=== PATIENT | female | born 1940 | race Caucasian/White ===

== ENCOUNTER 2016-11-12 23:48 | Emergency (ER) | payer MEDICARE ==
[2016-11-13 00:03] LABS: BASOPHILS 0.3 % (0.0-2.0); EOSINOPHILS 1.3 % (0.0-6.0); EOSINOPHILS# 0.2 X 10^3uL (0.0-0.4); HEMATOCRIT 30.3 % (36.0-48.0); HEMOGLOBIN 10.1 g/dL (12.0-16.0); LYMPHOCYTES# 5.1 X 10^3uL (0.8-3.8); MEAN CELL VOLUME 87.9 fL (84.0-102.0); MEAN CORPUS. HGB CONCENTRATION 33.4 g/dL (32.0-36.0); MEAN CORPUSCULAR HEMOGLOBIN 29.4 pg (29.0-35.0); MEAN PLATELET VOLUME 9.3 fL (7.4-10.4); MONOCYTES 3.8 % (2.0-10.0); MONOCYTES# 0.6 X 10^3uL (0.2-1.0); NEUTROPHILS 61.6 % (54.0-75.0); NEUTROPHILS# 9.7 X 10^3uL (2.6-6.7); RED BLOOD COUNT 3.44 X 10^6uL (4.20-6.10); RED CELL DISTRIBUTION WIDTH 12.8 % (11.5-14.5); WHITE BLOOD COUNT 15.6 X 10^3uL (3.9-10.7)
[2016-11-13 00:14] LABS: CALCIUM 9.2 mg/dL (8.4-10.2); POTASSIUM 4.1 mmol/L (3.5-5.1)
[2016-11-13] MEDS ORDERED: ONDANSETRON HCL 4 MG/2 ML VIAL ONE (00:30)
--- NOTE | 2016-11-13 00:37 | ER NURSING DOCUMENTATION ---
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 Pt found on floor, respiratory distress, pt lightheaded with positional changes. Pressures were initially 80/palp. Tachy in the 150-160's. Pt pants covered in blood. Transition of care: Home. Care prior to arrival: IV initiated. Saline lock initiated. Oxygen administered. IV Fluids given by EMS NS 500 ml Labs. 23:53 Method Of Arrival: EMS: 410 rh Triage Assessment: 23:58 General: Appears uncomfortable, Behavior is cooperative. Pain: Denies pain. EENT: Oral rh mucosa is dry. Neuro: Level of Consciousness is awake, alert, obeys commands, Oriented to person, place, time, event. Cardiovascular: Capillary refill is > 3 seconds. Respiratory: Airway is patent Respiratory effort is even, labored, Respiratory pattern is hyperventilation. GI: Abdomen is obese, Rectal exam: Bleeding noted, Stools are reported to be BRIGHT RED BLOODY STOOLS TONIGHT. Bowel sounds present X 4 quads. : No deficits noted. Derm: Skin is intact, is healthy with good turgor, Skin is pale. Musculoskeletal: Circulation, motion, and sensation intact Range of motion intact in all extremities. Historical: - Allergies: No known drug Allergies; - Home Meds: 1. hydrochlorothiazide 12.5 mg oral cap 1 cap once daily 2. montelukast 10 mg oral tab 1 tab once daily - PMHx: Hypertension; CHRONIC BACK PAIN; CERVICLE CANCER; - PSHx: Cancer Removal; - Tetanus: < 10 years. - Ebola Screening: : Patient negative for fever greater than or equal to 101.5 degrees Fahrenheit, and additional compatible Ebola Virus Disease symptoms. - Immunization history: Flu Vaccine < 1 year. - Social history: Smoking status: Patient states was never smoker of tobacco. Screenin/18 00:00 Infectious Disease Risk None. Abuse screen: Denies threats or abuse. Denies injuries rh from another. Nutritional screening: No deficits noted. Assessment: 00:00 See Triage Assessment done by same RN. rh 00:08 Reassessment: Helicopter arrival 00:23. rh 00:13 Reassessment: First Unit of uncrossed matched blood is in. . rh 00:21 GI: Reports nausea. rh Vital Signs: 11/12 23:50 BP 127 / 83; Pulse 157; Resp 26; Temp 98.7; Pulse Ox 97% on 6 lpm NC; Weight 68.04 kg; rh Height 5 ft. 4 in. (162.56 cm); Pain 0/10; 11/13 00:09 BP 109 / 56; Pulse 147; Resp 26; Pulse Ox 98% on 5 lpm NC; rh 00:20 BP 109 / 75; Pulse 143; Resp 22; Pulse Ox 96% on 3 lpm NC; Pain 0/10; rh 11/12 23:50 Body Mass Index 25.75 (68.04 kg, 162.56 cm) rh ED Course: 11/12 23:45 Oxygen Oxygen administration via nasal cannula @ 6L/min. rh 23:49 Patient arrived in ED. ma1 23:49 Bernie Fagan MD is Private Physician. ma1 23:50 Naun Sotelo MD is Attending Physician. 23:50 Yolanda Appiah is Primary Nurse. rh 23:50 Triage completed. rh 23:50 Notified ED Physician of patient's arrival and chief complaint. Dr. Sotelo notified. rh 23:50 monitoring specialist on. Pulse ox on. NIBP on. rh 23:55 BLOOD ADMIN CONSENT SIGNED. 11/13 00:01 Maintain field IV. Site clean & dry. Gauge & site: 18G BILATERAL AC. rh 00:01 Valuables Remains with patient Patient has correct armband on for positive rh identification. Placed in gown. Bed in low position. Call light in reach. Side rails up X 1. 00:02 EKG done. (by ED staff). Reviewed by Naun Sotelo MD. rh 00:05 EKG attached rh 00:17 Oxygen Oxygen administration via nasal cannula @ 3L/min. rh Administered Medications: 11/12 23:00 Drug: NS 0.9% 1000 ml; Route: IV; Rate: bolus; Site: left antecubital; rh 11/13 00:25 Follow up: IV Status: Completed infusion; IV Intake: 1000ml rh 11/12 23:50 Drug: NS 0.9% 500 ml; Route: IV; Rate: bolus; Site: left antecubital; rh 11/13 00:25 Follow up: IV Status: Completed infusion rh 00:21 Drug: Zofran 8 mg; {Note: ADMIN BY HIWOT URBAN.} Route: IVP; Infused Over: 2 mins; Site: right antecubital; 00:24 Follow up: Response: No adverse reaction; Nausea is decreased rh Medication: 11/12 23:00 Blood products: See transfusion record. rh Intake: 11/13 00:16 PO: 0ml; Total: 0ml. rh 00:25 IV: 1000ml; Total: 1000ml. rh Output: 00:16 Urine: 0ml; Total: 0ml. rh Outcome: 00:33 ER care complete, transfer ordered by . guilherme 00:35 [facility] Time: November 13, 2016 at 00:25 Patient's face sheet was faxed to accepting facility. Face Sheet included patient's name, address, age, gender, contact information and insurance information. Patient will be transported by: [employer] [facility]. Report called to: Valeri Cheema RN AT [facility] Nurse and Physician Charting and Notes were sent to Accepting Facility. All tests and/or procedures with results, if applicable, were sent to accepting facility. 00:35 Condition: stable 00:35 Discharge instructions given to Instructed on need for transfer 00:37 Patient left the ED. rh Signatures: Naun Sotelo MD MD jm Hofsess, Rachel Deb Calle
--- NOTE | 2016-11-13 00:37 | ER PHYSICIAN DOCUMENTATION ---
Physician Documentation [facility] Name:Martha Alvarez Age:76 yrs Sex:Female :1940 Arrival Date:11/12/2016 Time:23:48 BedTrauma A Private MD:Bernie Fagan ED, John Disposition: 11/13/16 00:33 Transfer ordered to [facility]. Diagnosis are GI Bleeding, Hemorrhagic Shock. - Reason for transfer: Higher level of care. - Accepting physician is Dr. Rushing. - Condition is Serious. - Problem is new. - Symptoms are unchanged. COBRA Form completed? Yes Transfer - Mode of Transportation Helicopter HPI: 11/12 23:59 This 76 yrs old Female presents to ER via EMS with complaints of GI Bleeding. jm 23:59 The patient presents to the emergency department with rectal bleeding, a large amount, jm "filled toilet", bright red blood with bowel movement. Onset: The symptom(s)/episode began/occurred today, and became worse today. Abdominal pain: none is appreciated. Modifying factors: the symptoms are aggravated by nothing. Associated signs and symptoms: Pertinent positives: dizziness at rest, shortness of breath. Severity of symptoms: in the emergency department the symptoms are unchanged. The patient has not experienced similar symptoms in the past. The patient has not recently seen a physician. Pt not on blood thinners. 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 Pt nearly passed out after and was on the bathroom floor. feels it was at least 2 pints of blood. . Historical: - Allergies: No known drug Allergies; - Home Meds: 1. hydrochlorothiazide 12.5 mg oral cap 1 cap once daily 2. montelukast 10 mg oral tab 1 tab once daily - PMHx: Hypertension; CHRONIC BACK PAIN; CERVICLE CANCER; - PSHx: Cancer Removal; - Tetanus: < 10 years. - Ebola Screening: : Patient negative for fever greater than or equal to 101.5 degrees Fahrenheit, and additional compatible Ebola Virus Disease symptoms. - Immunization history: Flu Vaccine < 1 year. - Social history: Smoking status: Patient states was never smoker of tobacco. ROS: 11/13 00:01 Constitutional: Positive for fatigue. jm Abdomen/GI: Positive for rectal bleeding, Negative for abdominal pain, nausea, vomiting, diarrhea, constipation, abdominal cramps. Skin: Positive for pallor. Neuro: Positive for dizziness, weakness. All other systems are negative. Exam: 00:02 Constitutional: The patient appears alert, awake, pale. 00:02 Eyes: Periorbital structures: appear normal, Conjunctiva: pale, bilaterally. 00:02 ENT: Nose: is normal, Mouth: Tongue: pale. 00:02 Cardiovascular: Rate: tachycardic, actual rate is 150 bpm, Rhythm: 00:02 Respiratory: Respirations: tachypnea, that is mild, Breath sounds: are normal. 00:02 Abdomen/GI: Palpation: abdomen is soft and non-tender, Rectal exam: Stool: grossly bloody. 00:02 Musculoskeletal/extremity: Pulses: noted to be 1+ in the right radial artery, right dorsalis pedis artery, left radial artery and left dorsalis pedis artery, Sensation intact. 00:02 Skin: Appearance: Color: pale, no rash present. 00:02 Neuro: Mentation: is normal, Memory: is normal. 00:02 Psych: Behavior/mood is pleasant, cooperative, anxious, Affect is calm. 00:09 Cardiovascular: Rhythm: irregularly irregular. 00:09 Abdomen/GI: Bowel sounds: normal. Vital Signs: 11/12 23:50 BP 127 / 83; Pulse 157; Resp 26; Temp 98.7; Pulse Ox 97% on 6 lpm NC; Weight 68.04 kg; rh Height 5 ft. 4 in. (162.56 cm); Pain 0/10; 11/13 00:09 BP 109 / 56; Pulse 147; Resp 26; Pulse Ox 98% on 5 lpm NC; rh 00:20 BP 109 / 75; Pulse 143; Resp 22; Pulse Ox 96% on 3 lpm NC; Pain 0/10; rh 11/12 23:50 Body Mass Index 25.75 (68.04 kg, 162.56 cm) rh MDM: 11/12 23:50 Patient medically screened. 11/13 00:05 EKG attached 00:05 Differential diagnosis: hemorrhagic shock. Data reviewed: vital signs, nurses notes, old medical records, lab test result(s), EKG, and as a result, I will discharge patient. 00:09 Counseling: I had a detailed discussion with the patient and/or guardian regarding: the historical points, exam findings, and any diagnostic results supporting the discharge/admit diagnosis, lab results, the need for outpatient follow up. Response to treatment: the patient's symptoms have mildly improved after treatment. ED course: Pt looked very ill on arrival; pale, tachypneic, tachy, and hypotensive in the field. Thankfully our first BP here normal, but I did not want to wait around for her to have more bleeding, so 2 units of blood were hung right away. 12 lead shows afib w RVR which could be contributed to her hypotension. . 00:24 Physician consultation: was called at 00:05. 11/13 00:17 Order name: CBC AUTO DIF, MDIF/RMOR IF IND [facility] 11/13 00:26 Order name: BASIC METABOLIC PANEL [facility] 11/12 23:51 Order name: Continuous Cardiac Monitoring; Complete Time: 23:53 11/12 23:51 Order name: Hemocult Stool; Complete Time: 00:13 11/12 23:51 Order name: I & O; Complete Time: 23:53 11/12 23:51 Order name: IV large bore X 2; Complete Time: 23:53 11/12 23:51 Order name: NPO; Complete Time: 23:53 11/12 23:51 Order name: Oxygen; Complete Time: 23:53 11/12 23:51 Order name: Pulse Ox Continuous; Complete Time: 23:53 11/12 23:51 Order name: Transfuse 2 Units T & C'd PRBCs; Complete Time: 23:53 11/13 00:02 Order name: EKG - 12 Lead; Complete Time: 00:02 Dispensed Medications: 11/12 23:00 Drug: NS 0.9% 1000 ml; Route: IV; Rate: bolus; Site: left antecubital; 11/13 00:25 Follow up: IV Status: Completed infusion; IV Intake: 1000ml 11/12 23:50 Drug: NS 0.9% 500 ml; Route: IV; Rate: bolus; Site: left antecubital; 11/13 00:25 Follow up: IV Status: Completed infusion 00:21 Drug: Zofran 8 mg; {Note: ADMIN BY HIWOT URBAN.} Route: IVP; Infused Over: 2 mins; Site: right antecubital; 00:24 Follow up: Response: No adverse reaction; Nausea is decreased Critical care time excluding procedures: 00:32 Critical care time: Bedside Care: 30 minutes, Consultation: 20 minutes, Family jm Intervention: 10 minutes. Total time: 60 minutes Signatures: Naun Sotelo MD MD jm Hofsess, Rachel
[2016-11-13 00:46] LABS: ABO GROUP TYPE O; ANTIBODY SCREEN NEGATIVE; RH TYPE NEGATIVE
[2016-11-13 01:05] LABS: CROSSMATCH IMMEDIATE SPIN COMPATIBLE
[2016-11-13 01:06] LABS: CROSSMATCH IMMEDIATE SPIN COMPATIBLE
== END 2016-11-13 00:37 | disposition short-term general hospital (02) ==
LOC: ER 23:48
DX: K92.1 Melena (principal); R42 Dizziness and giddiness; R06.02 Shortness of breath; R53.1 Weakness; D62 Acute posthemorrhagic anemia; I95.89 Other hypotension; I48.91 Unspecified atrial fibrillation; I49.3 Ventricular premature depolarization; I10 Essential (primary) hypertension; Z79.899 Other long term (current) drug therapy; Z99.89 Dependence on other enabling machines and devices; Z74.3 Need for continuous supervision
CPT/HCPCS: 36430; 80048; 85025; 85610; 85730; 86850; 86900; 86901; 86920; 93005; 93010; 93042; 96361; 96374; 99285; 99291; A0420; A0425; A0427; J2405; P9040-BL

== ENCOUNTER 2017-04-15 11:00 | Emergency (ER) | payer MEDICARE ==
[2017-04-15 11:46] LABS: BLOOD UREA NITROGEN 13 mg/dL (7-17); CALCIUM 9.9 mg/dL (8.4-10.2); CHLORIDE 100 mmol/L (98-107); EST GLOMERULAR FILTRATION RATE > 60 mL/min; GLUCOSE 109 mg/dL (70-100); MAGNESIUM 1.9 mg/dL (1.6-2.3); SODIUM 143 mmol/L (137-145)
[2017-04-15 11:56] LABS: WHITE BLOOD COUNT 8.5 X 10^3uL (3.9-10.7)
[2017-04-15 11:57] LABS: HEMATOCRIT 41.1 % (36.0-48.0); HEMOGLOBIN 13.5 g/dL (12.0-16.0); LYMPHOCYTES 20.7 % (20.0-40.0); MEAN CORPUS. HGB CONCENTRATION 32.8 g/dL (32.0-36.0); MEAN CORPUSCULAR HEMOGLOBIN 28.6 pg (29.0-35.0); MEAN PLATELET VOLUME 7.8 fL (7.4-10.4); MONOCYTES 5.7 % (2.0-10.0); NEUTROPHILS 71.2 % (54.0-75.0); PLATELET COUNT 449 X 10^3uL (130-440); RED BLOOD COUNT 4.72 X 10^6uL (4.20-6.10); RED CELL DISTRIBUTION WIDTH 15.2 % (11.5-14.5)
[2017-04-15 11:58] LABS: BASOPHIL# 0.1 X 10^3uL (0.0-0.1); BASOPHILS 0.7 % (0.0-2.0); EOSINOPHILS 1.7 % (0.0-6.0); EOSINOPHILS# 0.1 X 10^3uL (0.0-0.4); LYMPHOCYTES# 1.8 X 10^3uL (0.8-3.8); MONOCYTES# 0.5 X 10^3uL (0.2-1.0)
[2017-04-15 12:01] LABS: TROPONIN I < 0.012 ng/mL (0.00-0.034)
--- NOTE | 2017-04-15 12:11 | RADIOLOGY REPORT ---
HISTORY: Shortness of breath. COMPARISON: None. FINDINGS: 1 view of the chest obtained. No priors available for comparison. There is diffuse interstitial opacification, which may indicate a component of pulmonary edema. There is more focal heterogeneous opacification within the right lung base. A more focal large rounded opa city overlying the right lung base measures 8.5 cm is noted and is favored to represent a calcified b reast implant given the presence of an apparent calcified breast implant on the left. The cardiac silhouette is enlarged. Within limits of a single view, no large layering pleural effusio n. Faint nodular opacification within the left upper lobe is noted possibly indicating vessel on end. At tention on follow-up imaging is necessary to exclude pulmonary nodule. IMPRESSION: Diffuse interstitial opacification which may indicate pulmonary edema. There is more focal opacification of the right lung base which may indicate pneumonia or confluent pu lmonary edema. Faint nodular opacities projecting over left upper lobe which may indicate vessel on and. Attention o n follow-up radiographs or CT is recommended to exclude pulmonary nodule. Final Electronic Signature: This report was electronically signed by Obie Harris MD on 04/15/2017 1 2:09 PM. [email or web address] /
--- NOTE | 2017-04-15 13:20 | CT REPORT ---
HISTORY: Cough, with history of asthma. Elevated d-dimer. Evaluate for pulmonary embolism. COMPARISON: None. TECHNIQUE: This examination was performed using automated exposure control, adjustment of mA or kV according to patient size, and/or use of iterative reconstruction technique. Axial CT imaging from the thoracic i nlet through the upper abdomen following administration of IV contrast during peak opacification of t he pulmonary arteries, multiplanar reformatted and 3-D images are evaluated. 100cc Isovue 300 contrast. FINDINGS: There is no acute pulmonary embolism. Pulmonary arteries are normal in size. The thoracic aorta shows no dissection or aneurysm. The heart is moderately enlarged. There is no pericardial effusion. Innumerable bilateral pulmonary nodules are present. There is a large mass right lower lobe posterior ly (series 6, image 46), measuring 5.8 x 3.8 cm and associated with an area of atelectasis. There is lobulated thickening focally of the posterior aspect of the right major fissure. There are also multi focal areas of nodular pleural thickening in the lower posterior right chest. Markedly enlarged right hilar, right paratracheal, and subcarinal lymph nodes are present. There are also enlarged anterior mediastinal lymph nodes. A right axillary soft tissue nodule (series 6, image 25) measures 1.3 x 0.9 cm. A minimal left pleural effusion is present. An expansile mass involves the right anterior fifth rib and measures 5.3 x 2.6 cm (series 6, image 59 ). Bilateral breast implants show capsular calcifications and intracapsular ruptures. Imaged portions of the upper abdomen are unremarkable. A small hiatal hernia is present. There appears to be lower e sophageal wall thickening. IMPRESSION: 1. Negative for acute pulmonary embolism. 2. Large right lower lobe lung mass, numerous bilateral pulmonary nodules, and extensive areas of nod ular pleural thickening along the right major fissure and in the posterior lower right chest. This ma y all be due to metastatic disease, but could also be caused by a primary right lower lobe lung cance r with numerous metastatic pulmonary nodules and right pleural involvement. 3. Metastatic lymphadenopathy in the right hilum, mediastinum, subcarinal region, and inferior right axilla. 4. 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 5. Small left pleural effusion. 6. Bilateral breast implants show capsular calcifications and intracapsular ruptures. 7. Small hiatal hernia. Lower esophageal wall thickening may be neoplastic or inflammatory (esophagit is). Final Electronic Signature: This report was electronically signed by Nigel Perera MD on 04/15/2017 1:17 PM. [email or web address] /
--- NOTE | 2017-04-15 14:39 | ER NURSING DOCUMENTATION ---
Nurse's Notes [facility] Name:Martha Alvarez Age:76 yrs Sex:Female :1940 Arrival Date:04/15/2017 Time:11:00 Bed3 Private MD:Bernie Fagan Diagnosis:Lung Mass Presentation: 04/15 11:03 Acuity: SOLO 2 tg 11:30 Presenting complaint: Patient states: Pain in chest under left ribs. SOB. Transition of tg care: [facility]. AIR CAT ACTIVATION no. Asprin Given n/a. 11:30 Method Of Arrival: Private Vehicle tg Triage Assessment: 11:05 General: Appears uncomfortable, Behavior is cooperative. Pain: Complains of pain in tg diaphragm. Neuro: Level of Consciousness is awake, alert. Cardiovascular: Capillary refill < 3 seconds Rhythm is sinus rhythm. Respiratory: Respiratory effort is even, pursed lip, Respiratory pattern is tachypnea Reports pain with cough pain with respiration the patient has moderate shortness of breath. Historical: - Allergies: No known drug Allergies; - Home Meds: 1. hydrochlorothiazide 12.5 mg oral cap 1 cap once daily 2. montelukast 10 mg oral tab 1 tab once daily - PMHx: HYPERTENSION; CHRONIC BACK PAIN; CERVICLE CANCER; GI Bleeding (November 13, 2016); Hemorrhagic Shock (November 13, 2016); - PSHx: Cancer Removal; - Tetanus: < 10 years. - Ebola Screening: : Patient negative for fever greater than or equal to 101.5 degrees Fahrenheit, and additional compatible Ebola Virus Disease symptoms. Patient denies exposure to infectious person. Patient denies travel to an Ebola-affected area in the 21 days before illness onset. No symptoms or risks identified at this time. . - Immunization history: Flu Vaccine unknown. - Social history: Smoking status: Patient states was never smoker of tobacco. Screenin:25 Infectious Disease Risk Unable to Obtain. Abuse screen: Denies threats or abuse. Denies tg injuries from another. Nutritional screening: No deficits noted. Vital Signs: 11:00 BP 182 / 86 (auto/); Pulse 106; Resp 24; Temp 98.4(O); Pulse Ox 80% on R/A; Weight 62.6 tg kg (R); Height 5 ft. (152.40 cm) (R); Pain 6/10; 11:04 Pulse 100 MON; Resp 24; Pulse Ox 97% ; tg 11:30 BP 171 / 77 (auto/); tg 11:34 Pulse 100 MON; Resp 24; Pulse Ox 93% ; tg 12:00 BP 159 / 78 (auto/); tg 12:04 Pulse 96 MON; Resp 20; Pulse Ox 96% ; tg 13:30 BP 164 / 80 (auto/); tg 13:59 Pulse 109 MON; Resp 21; Pulse Ox 92% ; tg 14:00 BP 166 / 84 (auto/); tg 14:09 Pulse 106 MON; Resp 25; Pulse Ox 97% ; tg 11:00 Body Mass Index 26.95 (62.60 kg, 152.40 cm) tg ED Course: 11:01 Patient arrived in ED. ama 11:01 Bernie Fagan MD is Private Physician. ama 11:02 Naun Sotelo MD is Attending Physician. guilherme 11:03 Koko Drake, WILMAR is Primary Nurse. tg 11:03 Triage completed. tg 11:05 alarm security or surveillance monitor on. Pulse ox on. Diet: Patient is NPO. tg 11:29 Inserted peripheral IV: 18 gauge in right antecubital area and blood collected. Missed tg attempts: 18 gauge in left antecubital area. Oxygen Oxygen administration via nasal cannula @ 4L/min. 12:00 Notified ED physician, Dr. Sotelo of critical lab value for D-dimer with actual value of [id number] No new orders received at this time. 12:26 Valuables Remains with patient. tg 12:31 EKG attached sc1 Administered Medications: No medications were administered Point of Care Testing: Urine Dip: 12:24 pH: 7.0; ; Specific [place]: 1.015; Ketones: Moderate; Glucose: Negative; Protein: sj Negative; Leukocytes: Negative; Nitrite: Negative ; Blood: Negative; Bilirubin: Negative ; Urobilinogen: Normal Outcome: 14:03 ER care complete, transfer ordered by . guilherme 14:26 Transferred: Patient will be transferred to: [facility]. Facility tg Acceptance Time: April 15, 2017 at 14:00 Patient's face sheet was faxed to accepting facility. Face Sheet included patient's name, address, age, gender, contact information and insurance information. Patient will be transported by: [facility] ground. Nurse and Physician Charting and Notes were sent to Accepting Facility. All tests and/or procedures with results, if applicable, were sent to accepting facility. 14:26 Condition: unchanged 14:26 Discharge Assessment: Patient awake and alert. 14:26 Instructed on need for transfer 14:29 Report given to WILMAR Cabrales at [facility] says there is facility acceptance and room # tg assigned, but unable to get receiving nurse on the phone for report. They will call back when available. 14:38 Patient left the ED. tg 14:55 Transferred: Report called to: Cecilia leigh Signatures: Koko Drake RN RN tg Kaitlynn Atkins, RN RN sc1 Naun Sotelo MD MD jm Abbott, Gabriel Ochoa, Shamar Bautista, Annette bingham
--- NOTE | 2017-04-15 14:39 | ER PHYSICIAN DOCUMENTATION ---
Physician Documentation [facility] Name:Martha Alvarez Age:76 yrs Sex:Female :1940 Arrival Date:04/15/2017 Time:11:00 Bed3 Private MD:Bernie Fagan ED, John Disposition: 04/15/17 14:03 Transfer ordered to [facility]. Diagnosis is Lung Mass. - Reason for transfer: Specialty. - Accepting physician is Dr. Varghese. - Condition is Serious. - Problem is new. - Symptoms are unchanged. COBRA Form completed? Yes Transfer - Mode of Transportation Ambulance HPI: 04/15 11:27 This 76 yrs old Female presents to ER with complaints of Chest Pain. jm 11:27 The patient or guardian reports chest pain that is located primarily in the diaphragm. jm Onset: 1 week(s) ago, and became worse today. The pain does not radiate. Associated signs and symptoms: Pertinent positives: shortness of breath. The chest pain is described as sharp, squeezing. Duration: The patient or guardian reports a single episode, that is still ongoing. Modifying factors: the symptoms are aggravated by deep breath. Severity of pain: in the emergency department the pain is actually worse. The patient has not experienced similar symptoms in the past. The patient has been recently seen by a physician: the patient's primary care provider, Dr. Fagan, who sent pt here for w/u. . Pt here for w/u of SOB/CP. Pt fell 2 months ago and returned to see PCP for w/u, but w/u was negative for Rib fx of any other abnormalities. Yesterday she's noted more SOB and CP to the point where she needed to turn up her 02 and wear it during the day. Pt states it's hard to take a deep breath. No recent trauma. . Historical: - Allergies: No known drug Allergies; - Home Meds: 1. hydrochlorothiazide 12.5 mg oral cap 1 cap once daily 2. montelukast 10 mg oral tab 1 tab once daily - PMHx: HYPERTENSION; CHRONIC BACK PAIN; CERVICLE CANCER; GI Bleeding (November 13, 2016); Hemorrhagic Shock (November 13, 2016); - PSHx: Cancer Removal; - Tetanus: < 10 years. - Ebola Screening: : Patient negative for fever greater than or equal to 101.5 degrees Fahrenheit, and additional compatible Ebola Virus Disease symptoms. Patient denies exposure to infectious person. Patient denies travel to an Ebola-affected area in the 21 days before illness onset. No symptoms or risks identified at this time. . - Immunization history: Flu Vaccine unknown. - Social history: Smoking status: Patient states was never smoker of tobacco. ROS: 12:51 Constitutional: Negative for fatigue, fever. jm 12:51 ENT: Negative for sinus congestion, sinus pain, sore throat. 12:51 Cardiovascular: Positive for chest pain, with cough, with movement. 12:51 Respiratory: Positive for cough, shortness of breath. 12:51 Abdomen/GI: Negative for abdominal pain, nausea, vomiting. 12:51 MS/extremity: Negative for 12:51 Skin: Negative for rash, swelling. 12:51 Neuro: Positive for weakness. 12:51 All other systems are negative. Exam: 12:52 Constitutional: The patient appears alert, awake. jm 12:52 Head/face: Exam is negative for obvious evidence of injury or deformity, Sinus tenderness, is not appreciated. 12:52 Eyes: Periorbital structures: appear normal, Conjunctiva: normal. 12:52 ENT: Mouth: is normal, Voice: is normal. 12:52 Neck: Thyroid: appears normal, Trachea: is midline with no obvious abnormalities. 12:52 Cardiovascular: Rate: normal, Rhythm: regular, Pulses: no pulse deficits are appreciated, Edema: is not appreciated. 12:52 Respiratory: the patient does not display signs of respiratory distress, Respirations: normal, Breath sounds: decreased breath sounds, that are mild, that are moderate, are located in both bases. 12:52 Abdomen/GI: Bowel sounds: normal, Palpation: abdomen is soft and non-tender. 12:52 Back: pain, is absent, CVA tenderness, is absent. 12:52 Skin: Appearance: Color: pink, no rash present. 12:52 Neuro: Mentation: is normal, Memory: is normal. 12:52 Psych: Behavior/mood is pleasant, cooperative, Affect is calm. Vital Signs: 11:00 BP 182 / 86 (auto/); Pulse 106; Resp 24; Temp 98.4(O); Pulse Ox 80% on R/A; Weight 62.6 tg kg (R); Height 5 ft. (152.40 cm) (R); Pain 6/10; 11:04 Pulse 100 MON; Resp 24; Pulse Ox 97% ; tg 11:30 BP 171 / 77 (auto/); tg 11:34 Pulse 100 MON; Resp 24; Pulse Ox 93% ; tg 12:00 BP 159 / 78 (auto/); tg 12:04 Pulse 96 MON; Resp 20; Pulse Ox 96% ; tg 13:30 BP 164 / 80 (auto/); tg 13:59 Pulse 109 MON; Resp 21; Pulse Ox 92% ; tg 14:00 BP 166 / 84 (auto/); tg 14:09 Pulse 106 MON; Resp 25; Pulse Ox 97% ; tg 11:00 Body Mass Index 26.95 (62.60 kg, 152.40 cm) tg MDM: 11:02 Patient medically screened. 12:31 EKG attached sc1 12:57 Differential diagnosis: acute pericarditis, chest wall pain, pneumonia, pulmonary jm embolus, stable angina. Data reviewed: vital signs, nurses notes, old medical records, lab test result(s), EKG, radiologic studies, and as a result, I will admit patient. Test interpretation: by ED physician or midlevel provider: plain radiologic studies, ECG. Counseling: I had a detailed discussion with the patient and/or guardian regarding: the historical points, exam findings, and any diagnostic results supporting the discharge/admit diagnosis, lab results, radiology results, the need for further work-up and treatment in the hospital. ECG:. 14:11 Physician consultation: Dr. Dr. Villeda was called at 14:00, was contacted at 14:05. ED course: Pt w a lung mass that will need further w/u. We cannot get this done in , so we will transfer to [facility]. Dr. Villeda as accepted. . 04/15 11:58 Order name: CBC AUTO DIF, MDIF/RMOR IF IND; Complete Time: 13:55 EDMS 04/15 12:01 Order name: DDIMER; Complete Time: 13:55 EDMS 04/15 12:01 Order name: BASIC METABOLIC PANEL; Complete Time: 13:55 EDMS 04/15 12:01 Order name: MAGNESIUM; Complete Time: 13:55 EDMS 04/15 12:01 Order name: BNP,NT-PRO; Complete Time: 13:55 EDMS 04/15 12:01 Order name: TROPONIN I; Complete Time: 13:55 EDIL 04/15 12:12 Order name: CHEST; SING[place]IEW [id number]; Complete Time: 13:10 EDIL 04/15 13:21 Order name: CAT SCAN; CHEST ANGIO [id number]; Complete Time: 13:55 EDIL 04/15 11:02 Order name: 12-lead EKG; Complete Time: : 04/15 11:02 Order name: Iv Saline Lock; Complete Time: : 04/15 11:02 Order name: Place Patient On Monitor; Complete Time: 04/15 11:02 Order name: Pulse Ox Continuous; Complete Time: : EC:57 Rhythm is regular. QRS [place] is Normal. OR interval is normal. QRS interval is normal. QT interval is normal. No Q waves. T waves are Normal. No ST changes noted. Dispensed Medications: No medications were administered Point of Care Testing: Urine Dip: 12:24 pH: 7.0; ; Specific Vader: 1.015; Ketones: Moderate; Glucose: Negative; Protein: sj Negative; Leukocytes: Negative; Nitrite: Negative ; Blood: Negative; Bilirubin: Negative ; Urobilinogen: Normal Signatures: Koko Drake RN RN tg Kaitlynn Atkins RN RN sc1 Naun Sotelo MD MD
== END 2017-04-15 14:39 | disposition short-term general hospital (02) ==
LOC: ER 11:00
DX: R91.8 Other nonspecific abnormal finding of lung field (principal); R06.02 Shortness of breath; R07.89 Other chest pain; R05 Cough; Z85.41 Personal history of malignant neoplasm of cervix uteri; I10 Essential (primary) hypertension; Z79.899 Other long term (current) drug therapy; Z99.89 Dependence on other enabling machines and devices; Z99.81 Dependence on supplemental oxygen; Z74.3 Need for continuous supervision
CPT/HCPCS: 71010; 71275; 80048; 83735; 83880; 84484; 85025; 85379; 93005; 93010; 99285; A0425; A0429